=== PATIENT | female | born 1940 | race Caucasian/White ===

== ENCOUNTER 2023-01-29 13:05 | Observation (INO) | payer MEDICARE, MEDICAID ==
[~2023-01-29] VITALS: Ht 162.6 cm; Wt 58.5 kg
[2023-01-29] MEDS ORDERED: NS 1,000 ML IV SCH (13:25)
[2023-01-29] MEDS ORDERED: CHARCOAL ACTIVATED LIQUID 25GM/120ML BTL PO ONE (13:30)
[2023-01-29 14:04] LABS: BASO % 0.5 % (0.0-1.0); EOS # 0.1 10^3/uL (0.0-0.5); EOS % 0.8 % (0.0-3.0); HEMATOCRIT 33.3 % (36.0-47.0); HEMOGLOBIN 11.4 g/dl (12.0-15.5); LYMPH # 0.8 10^3/uL (1.5-5.0); LYMPH % 12.1 % (24.0-44.0); MEAN CORPUSCULAR HEMOGLOBIN 32.5 pg (27.0-33.0); MEAN CORPUSCULAR HGB CONC 34.2 g/dl (32.0-36.5); MEAN CORPUSCULAR VOLUME 94.9 fl (80.0-96.0); MONO # 0.5 10^3/uL (0.0-0.8); MONO % 7.1 % (2.0-8.0); NEUTROPHILS # 5.2 10^3/uL (1.5-8.5); NEUTROPHILS % 78.9 % (36.0-66.0); PLATELET COUNT, AUTOMATED 196 10^3/uL (150-450); RED BLOOD COUNT 3.51 10^6/uL (4.00-5.40); WHITE BLOOD COUNT 6.6 10^3/uL (4.0-10.0)
[2023-01-29 14:28] LABS: ETHYL ALCOHOL (ETHANOL) < 0.003 % (0.000-0.010)
[2023-01-29 14:29] LABS: ACETAMINOPHEN LEVEL 32.1 UG/ML (10.0-20.0); ALBUMIN 3.8 G/DL (3.2-5.2); ALKALINE PHOSPHATASE 59 U/L (46-116); ALT/SGPT 29 U/L (7.0-40); AST/SGOT 36 U/L (<34); BILIRUBIN,DIRECT 0.2 MG/DL (<0.4); BLOOD UREA NITROGEN 10 MG/DL (9-23); CALCIUM LEVEL 8.2 MG/DL (8.3-10.6); CARBON DIOXIDE LEVEL 25 MMOL/L (20-31); CHLORIDE LEVEL 105 MMOL/L (98-107); CREATININE FOR GFR 0.59 MG/DL (0.55-1.30); GLOMERULAR FILTRATION RATE > 60.0 (>32); GLUCOSE, FASTING 116 MG/DL (74-106); POTASSIUM SERUM 4.6 MMOL/L (3.5-5.1); SALICYLATE LEVEL < 3.0 MG/DL (<30); SODIUM LEVEL 138 MMOL/L (136-145); TOTAL PROTEIN 5.8 G/DL (5.7-8.2)
[2023-01-29 14:32] LABS: THYROID STIMULATING HORMONE 1.602 uIU/ML (0.55-4.78)
[2023-01-29 14:36] LABS: CPK CREATINE PHOSPHOKINASE 82 U/L (34-145)
[2023-01-29 14:39] LABS: RSV AMPLIFICATION NEGATIVE (NEGATIVE)
[2023-01-29 14:50] LABS: AMPHETAMINES LEVEL URINE NEGATIVE (NEGATIVE); BARBITURATES URINE NEGATIVE (NEGATIVE); BENZODIAZEPINES URINE NEGATIVE (NEGATIVE); COCAINE METABOLITE URINE NEGATIVE (NEGATIVE)
[2023-01-29 14:51] LABS: CANNABINOIDS URINE NEGATIVE (NEGATIVE); METHADONE URINE NEGATIVE (NEGATIVE); OPIATES URINE NEGATIVE (NEGATIVE); PHENCYCLIDINE URINE NEGATIVE (NEGATIVE)
[2023-01-29] MEDS ORDERED: ACETYLCYSTEINE IV ONE ×5 (16:30→22:00)
[2023-01-29] MEDS ORDERED: D5W IV ONE ×5 (16:30→22:00)
[2023-01-29] MEDS ORDERED: ACE65ERTAB PO (16:58)
[2023-01-29] MEDS ORDERED: TRAV04OPD OU (16:58)
[2023-01-29] MEDS ORDERED: VITA500T40 PO (16:58)
[2023-01-29] MEDS ORDERED: METO1TAB32 PO (16:58)
[2023-01-29] MEDS ORDERED: LEVO88TA3 PO (16:58)
[2023-01-29] MEDS ORDERED: PRAV80TA2 PO (16:58)
[2023-01-29] MEDS ORDERED: IRON1TAB2 PO (16:58)
[2023-01-29] MEDS ORDERED: D 101000 PO (16:58)
[2023-01-29] MEDS ORDERED: AMLO2.5C6 PO (16:58)
[2023-01-29] MEDS ORDERED: LAMO150T3 PO (16:58)
[2023-01-29] MEDS ORDERED: HOME MED LIST COMPLETE! XX SCH (17:05)
[2023-01-29 17:37] VITALS: BP 140/61
[2023-01-29 17:44] LABS: VITAMIN B12 LEVEL 1183 PG/ML (211-911)
[2023-01-29 20:00] VITALS: BP 152/72
[2023-01-29] MEDS: NS 1,000 ML IV SCH (20:12)
[2023-01-29 20:14] LABS: BASO % 0.4 % (0.0-1.0); EOS # 0.1 10^3/uL (0.0-0.5); EOS % 0.9 % (0.0-3.0); HEMATOCRIT 33.1 % (36.0-47.0); HEMOGLOBIN 11.4 g/dl (12.0-15.5); LYMPH # 1.4 10^3/uL (1.5-5.0); LYMPH % 18.6 % (24.0-44.0); MEAN CORPUSCULAR HEMOGLOBIN 32.7 pg (27.0-33.0); MEAN CORPUSCULAR HGB CONC 34.4 g/dl (32.0-36.5); MEAN CORPUSCULAR VOLUME 94.8 fl (80.0-96.0); MONO # 0.5 10^3/uL (0.0-0.8); MONO % 7.3 % (2.0-8.0); NEUTROPHILS # 5.4 10^3/uL (1.5-8.5); NEUTROPHILS % 72.5 % (36.0-66.0); PLATELET COUNT, AUTOMATED 207 10^3/uL (150-450); RED BLOOD COUNT 3.49 10^6/uL (4.00-5.40); WHITE BLOOD COUNT 7.4 10^3/uL (4.0-10.0)
[2023-01-29 20:26] LABS: INR 1.14; PROTHROMBIN TIME 14.8 SECONDS (12.5-14.5)
[2023-01-29 20:27] LABS: PARTIAL THROMBOPLASTIN TIME 25.5 SECONDS (24.8-34.2)
[2023-01-29] MEDS: METOCLOPRAMIDE INJ 10MG/2ML VIAL IV PRN (23:01)
[2023-01-29 23:48] VITALS: BP 145/65
[2023-01-30] VITALS (7 sets, daily range): BP systolic 145–161; BP diastolic 68–80
[2023-01-30 02:16] LABS: INR 1.11; PROTHROMBIN TIME 14.5 SECONDS (12.5-14.5)
[2023-01-30 02:17] LABS: PARTIAL THROMBOPLASTIN TIME 24.6 SECONDS (24.8-34.2)
[2023-01-30] MEDS: METOCLOPRAMIDE INJ 10MG/2ML VIAL IV PRN (05:48)
[2023-01-30 07:41] LABS: INR 1.06; PARTIAL THROMBOPLASTIN TIME 23.8 SECONDS (24.8-34.2)
[2023-01-30 07:55] LABS: ACETAMINOPHEN LEVEL 2.4 UG/ML (10.0-20.0)
[2023-01-30 07:56] LABS: ALBUMIN 3.5 G/DL (3.2-5.2); ALKALINE PHOSPHATASE 48 U/L (46-116); ALT/SGPT 22 U/L (7.0-40); AST/SGOT 18 U/L (<34); BILIRUBIN,TOTAL 1.1 MG/DL (0.3-1.2); BLOOD UREA NITROGEN 6 MG/DL (9-23); CALCIUM LEVEL 8.8 MG/DL (8.3-10.6); CARBON DIOXIDE LEVEL 27 MMOL/L (20-31); CHLORIDE LEVEL 105 MMOL/L (98-107); CREATININE FOR GFR 0.45 MG/DL (0.55-1.30); GLOMERULAR FILTRATION RATE > 60.0 (>32); GLUCOSE, FASTING 123 MG/DL (74-106); POTASSIUM SERUM 3.4 MMOL/L (3.5-5.1); SODIUM LEVEL 139 MMOL/L (136-145); TOTAL PROTEIN 5.6 G/DL (5.7-8.2)
[2023-01-30] MEDS: NS 1,000 ML IV SCH (08:41)
[2023-01-30] MEDS ORDERED: POTASSIUM CHLORIDE 10MEQ SR TABLET PO ONE (08:50)
[2023-01-30] MEDS: ENOXAPARIN 40MG/0.4ML SYRINGE (J1650 PER 10MG) SC SCH (09:52)
[2023-01-30] MEDS ORDERED: amLODIPine 5 MG TAB PO ONE (14:00)
[2023-01-30 14:37] LABS: ALBUMIN 3.6 G/DL (3.2-5.2); ALKALINE PHOSPHATASE 52 U/L (46-116); ALT/SGPT 22 U/L (7.0-40); AST/SGOT 15 U/L (<34); BILIRUBIN,TOTAL 0.9 MG/DL (0.3-1.2); BLOOD UREA NITROGEN 7 MG/DL (9-23); CALCIUM LEVEL 9.1 MG/DL (8.3-10.6); CARBON DIOXIDE LEVEL 29 MMOL/L (20-31); CHLORIDE LEVEL 108 MMOL/L (98-107); CREATININE FOR GFR 0.52 MG/DL (0.55-1.30); GLOMERULAR FILTRATION RATE > 60.0 (>32); GLUCOSE, FASTING 136 MG/DL (74-106); POTASSIUM SERUM 3.4 MMOL/L (3.5-5.1); SODIUM LEVEL 142 MMOL/L (136-145); TOTAL PROTEIN 5.7 G/DL (5.7-8.2)
[2023-01-30] MEDS: POTASSIUM CHLORIDE 10MEQ SR TABLET PO SCH ×2 (15:44→17:31)
[2023-01-31 02:30] LABS: ALBUMIN 3.7 G/DL (3.2-5.2); ALKALINE PHOSPHATASE 63 U/L (46-116); ALT/SGPT 21 U/L (7.0-40); AST/SGOT 16 U/L (<34); BLOOD UREA NITROGEN 10 MG/DL (9-23); CALCIUM LEVEL 9.2 MG/DL (8.3-10.6); CARBON DIOXIDE LEVEL 26 MMOL/L (20-31); CHLORIDE LEVEL 108 MMOL/L (98-107); CREATININE FOR GFR 0.57 MG/DL (0.55-1.30); GLOMERULAR FILTRATION RATE > 60.0 (>32); GLUCOSE, FASTING 97 MG/DL (74-106); POTASSIUM SERUM 4.3 MMOL/L (3.5-5.1); SODIUM LEVEL 141 MMOL/L (136-145); TOTAL PROTEIN 5.7 G/DL (5.7-8.2)
[2023-01-31 04:19] VITALS: BP 154/73
[2023-01-31] MEDS ORDERED: LEVOTHYROXINE 88MCG TABLET (0.088 MG) PO SCH (06:00)
[2023-01-31 08:17] VITALS: BP 146/69
[2023-01-31 08:23] VITALS: BP 146/69
[2023-01-31 08:53] LABS: ALBUMIN 4.1 G/DL (3.2-5.2); ALKALINE PHOSPHATASE 58 U/L (46-116); ALT/SGPT 22 U/L (7.0-40); AST/SGOT 17 U/L (<34); BILIRUBIN,TOTAL 1.4 MG/DL (0.3-1.2); BLOOD UREA NITROGEN 10 MG/DL (9-23); CALCIUM LEVEL 9.4 MG/DL (8.3-10.6); CARBON DIOXIDE LEVEL 26 MMOL/L (20-31); CHLORIDE LEVEL 106 MMOL/L (98-107); GLOMERULAR FILTRATION RATE > 60.0 (>32); GLUCOSE, FASTING 101 MG/DL (74-106); POTASSIUM SERUM 3.8 MMOL/L (3.5-5.1); SODIUM LEVEL 140 MMOL/L (136-145); TOTAL PROTEIN 6.3 G/DL (5.7-8.2)
[2023-01-31] MEDS ORDERED: BENAZEPRIL 5MG TAB PO SCH (09:00)
[2023-01-31] MEDS ORDERED: ACETAMINOPHEN 650MG ER TAB (TYLENOL ARTHRITIS) PO SCH (09:00)
[2023-01-31] MEDS ORDERED: VITAMIN D 1,000 INTERNATIONAL UNITS TABLET PO SCH (09:00)
[2023-01-31] MEDS ORDERED: FERROUS SULFATE 325MG TAB PO SCH (09:00)
[2023-01-31] MEDS ORDERED: METOPROLOL SUCC *XL* 25MG TAB (TopROL *XL*) PO SCH (09:00)
[2023-01-31] MEDS ORDERED: lamoTRIgine 100MG TAB PO SCH (09:00)
[2023-01-31] MEDS ORDERED: CYANOCOBALAMIN 500 MCG TAB PO SCH (09:00)
[2023-01-31] MEDS ORDERED: PILL CUTTER 1 EACH XX PRN (09:05)
[2023-01-31] MEDS: ENOXAPARIN 40MG/0.4ML SYRINGE (J1650 PER 10MG) SC SCH (09:21)
[2023-01-31 09:22] VITALS: BP 146/69
[2023-01-31] MEDS ORDERED: LATANOPROST 0.005% OPHTH SOLN 2.5 ML OU SCH (21:00)
[2023-01-31] MEDS ORDERED: PRAVASTATIN 20 MG TAB PO SCH (21:00)
== END 2023-01-31 10:52 | disposition home or self-care (01) ==
LOC: EDBD 13:05 → M ED 13:05 → M ED INP 15:30 → ENRESERV 15:53 → M PCU 17:35
PROVIDERS: ADMIT Internal Medicine; ATTEND Internal Medicine
DX: T42.71XA Poisoning by unspecified antiepileptic and sedative-hypnotic drugs, accidental (unintentional), initial encounter (principal); T39.1X1A Poisoning by 4-Aminophenol derivatives, accidental (unintentional), initial encounter; T46.4X1A Poisoning by angiotensin-converting-enzyme inhibitors, accidental (unintentional), initial encounter; T44.7X1A Poisoning by beta-adrenoreceptor antagonists, accidental (unintentional), initial encounter; Y92.008 Other place in unspecified non-institutional (private) residence as the place of occurrence of the external cause; Y93.9 Activity, unspecified; Y99.9 Unspecified external cause status; I10 Essential (primary) hypertension; E03.9 Hypothyroidism, unspecified; G40.909 Epilepsy, unspecified, not intractable, without status epilepticus; F03.90 Unspecified dementia, unspecified severity, without behavioral disturbance, psychotic disturbance, mood disturbance, and anxiety; H57.02 Anisocoria; D64.9 Anemia, unspecified; Z79.899 Other long term (current) drug therapy; Z88.5 Allergy status to narcotic agent; R79.1 Abnormal coagulation profile
CPT/HCPCS: 36415; 70450; 71045; 80048; 80053; 80076; 80143; 80175; 80307; 81001; 82077; 82306; 82550; 82607; 84443; 85025; 85610; 85730; 87631; 93005; 93041; 94760; 96361; 96372; 96374; 96376; 97116; 97161; 99285; G0378; J0132; J1650; J2765